=== PATIENT | female | born 1975 | race Caucasian/White ===

== ENCOUNTER → 2023-06-12 07:40 | Outpatient (REF) | payer OTHER, SELFPAY | LOC: WDC 07:40 | PROVIDERS: ATTENDING PHYSICIAN Physician Assistant Medical | DX: Z12.31 Encounter for screening mammogram for malignant neoplasm of breast (principal) | CPT/HCPCS: 77063; 77067 ==

== ENCOUNTER → 2023-10-12 10:00 | Outpatient (REF) | payer OTHER, SELFPAY | LOC: WDC 10:00 | PROVIDERS: ATTENDING PHYSICIAN Family Medicine | DX: R92.2 Inconclusive mammogram (principal) | CPT/HCPCS: 76641 ==

== ENCOUNTER 2024-03-18 06:17 | Day surgery (SDC) | payer OTHER, SELFPAY | END 2024-03-18 14:21 | disposition home or self-care (01) | LOC: GI 06:17 | PROVIDERS: ATTENDING PHYSICIAN Internal Medicine | DX: Z12.11 Encounter for screening for malignant neoplasm of colon (principal); Q43.8 Other specified congenital malformations of intestine | CPT/HCPCS: G0121 ==

== ENCOUNTER → 2024-06-14 07:51 | Outpatient (REF) | payer OTHER, SELFPAY | LOC: WDC 07:51 | PROVIDERS: ATTENDING PHYSICIAN Family Medicine | DX: Z12.31 Encounter for screening mammogram for malignant neoplasm of breast (principal) | CPT/HCPCS: 77063; 77067 ==